=== PATIENT | male | born 1995 | race Caucasian/White ===

== ENCOUNTER 2020-01-29 07:09 | Emergency (ER) | payer SELFPAY ==
[~2020-01-29] VITALS: Ht 172.7 cm; Wt 61.2 kg
[2020-01-29 07:19] VITALS: BP 148/72
== END 2020-01-29 09:27 | disposition home or self-care (01) ==
LOC: ER 07:09 → EDBD 07:09 → ER 09:27
DX: F41.9 Anxiety disorder, unspecified (principal); R44.3 Hallucinations, unspecified